=== PATIENT | male | born 1995 | race Caucasian/White ===

== ENCOUNTER 2018-08-22 09:12 | Emergency (ER) | payer BC, OTHER ==
--- NOTE | 2018-08-22 10:30 | RAD REPORT ---
EXAM DESCRIPTION: CT - Stone Protocol - 08/22/2018 10:15 am CLINICAL HISTORY: Flank pain. Abd pain;Flank pain COMPARISON: No comparisons TECHNIQUE: Axial images were obtained without oral or IV contrast. Lack of contrast limits solid org an and vascular assessment. The [id number] spans the entirety of the system partially obscuring uppermost abdomen and lung bases. Coronal reformatted images were obtained and reviewed. All CT scans are performed using dose optimization technique as appropriate and may include automated exposure control or mA/KV adjustment according to patient size. FINDINGS: The lower lung ceballos are clear. Imaged portions of the liver and spleen show no suspicious findings on non-contrast imaging. The panc reas and adrenal glands are normal. No pathologic lymphadenopathy in the abdomen or pelvis. No urinary tract stones or obstructive uropathy. No bowel obstruction, free air, free fluid or abscess. Normal appendix noted. No significant bony abnormality. IMPRESSION: No urinary tract stones or obstructive uropathy.
[2018-08-22 10:37] LABS: Absolute Lymphocytes (CBC) 1.8 K/uL (0.7-4.9); Absolute Monocytes 0.5 K/uL (0.1-1.3); Absolute Neutrophil 4.9 K/uL (1.8-8.0); Basophils % 0.3 % (0-1.3); Eosinophils % 1.1 % (0-4.4); Hematocrit 44.2 % (39.6-49.0); Lymphocytes % 24.5 % (15.3-44.8); MPV 7.4 fL (7.6-11.3); Monocytes % 7.1 % (3.3-12.3); RBC Red Blood Cell Count 5.16 M/uL (4.33-5.43)
[2018-08-22] MEDS ORDERED: KETOROLAC 30 MG/ML INJ ONE (10:47)
[2018-08-22] MEDS ORDERED: NA CHLORIDE 0.9% 1,000 ML ONE (10:47)
--- NOTE | 2018-08-22 10:52 | ER ---
Nurse's Notes [facility] Name: John Vanegas Age: 23 yrs Sex: Male : 1995 Arrival Date: 08/22/2018 Time: 09:16 Bed 18 Private MD: Diagnosis: Hematuria;Cystitis Presentation: 08/22 09:46 Presenting complaint: Patient states: had flu like symptoms 3 days ago, was running iw fever, symptoms resolved, no has pain and blood in urine since yesterday, also c/o right flank pain and neck pain, denies fever, denies hx of kidney stones. Transition of care: patient was not received from another setting of care. Onset of symptoms was August 22, 2018. Risk Assessment: Do you want to hurt yourself or someone else? Patient reports no desire to harm self or others. Initial Sepsis Screen: Does the patient meet any 2 criteria? No. Patient's initial sepsis screen is negative. Does the patient have a suspected source of infection? No. Patient's initial sepsis screen is negative. Care prior to arrival: None. 09:46 Method Of Arrival: Ambulatory iw 09:46 Acuity: LESLY 3 iw Historical: - Allergies: 09:49 NKA; iw - Home Meds: 09:49 None [Active]; iw - PMHx: 09:49 None; iw - PSHx: 09:49 None; iw - Immunization history:: Adult Immunizations not up to date. - Social history:: Smoking status: Patient/guardian denies using tobacco. - Ebola Screening: : Patient negative for fever greater than or equal to 101.5 degrees Fahrenheit, and additional compatible Ebola Virus Disease symptoms Patient denies exposure to infectious person Patient denies travel to an Ebola-affected area in the 21 days before illness onset No symptoms or risks identified at this time. - Family history:: not pertinent. Screenin:30 Abuse screen: Denies threats or abuse. Denies injuries from another. Nutritional ss screening: No deficits noted. Tuberculosis screening: Never had TB. Fall Risk None identified. Assessment: 09:45 General: Appears in no apparent distress. comfortable, Behavior is calm, cooperative, ss Denies fever, feeling ill, fatigue, chills. Pain: Complains of pain in right lower quadrant and right upper quadrant. Neuro: Level of Consciousness is awake, alert, obeys commands, Oriented to person, place, time, situation. Cardiovascular: Capillary refill < 3 seconds is brisk in bilateral fingers. Respiratory: Airway is patent Respiratory effort is even, unlabored, Respiratory pattern is regular, symmetrical. GI: Patient currently denies diarrhea, nausea, vomiting. : Reports blood in urine that began this morning. EENT: Nares are clear Oral mucosa is moist. Derm: Skin is intact, is healthy with good turgor, Skin is dry, Skin is pink, warm \T\ dry. normal. 10:30 Reassessment: Patient appears in no apparent distress at this time. Patient and/or ss family updated on plan of care and expected duration. Pain level reassessed. Patient is alert, oriented x 3, equal unlabored respirations, skin warm/dry/pink. Vital Signs: 09:48 BP 153 / 91; Pulse 84; Resp 16; Temp 98.4(O); Pulse Ox 99% ; Weight 115.67 kg; Height 5 iw ft. 9 in. (175.26 cm); Pain 4/10; 11:51 BP 148 / 97; Pulse 87; Resp 16; Pulse Ox 100% on R/A; Pain 0/10; ss 09:48 Body Mass Index 37.66 (115.67 kg, 175.26 cm) iw ED Course: 09:16 Patient arrived in ED. as 09:31 Leonardo Banuelos MD is Attending Physician. [facility] 09:48 Triage completed. iw 09:48 Arm band placed on. iw 10:14 CT Stone Protocol In Process Unspecified. EDMS 10:17 Urine Dipstick--Ancillary (enter results) Sent. mh5 10:17 Urine Culture Sent. mh5 10:27 Patient has correct armband on for positive identification. Placed in gown. Bed in low mh5 position. Call light in reach. Pulse ox on. NIBP on. 10:27 Urine collected: clean catch specimen, cloudy. mh5 10:40 Sheridan Jaffe, RDIGE is Primary Nurse. ss 11:47 No provider procedures requiring assistance completed. IV discontinued, intact, ss bleeding controlled, No redness/swelling at site. Pressure dressing applied. Administered Medications: 10:40 Drug: TORadol 30 mg Route: IVP; Site: right antecubital; ss 11:24 Follow up: Response: No adverse reaction; Pain is decreased ss 10:41 Drug: NS 0.9% 1000 ml Route: IV; Rate: 1 bolus; Site: right antecubital; ss 11:51 Follow up: IV Status: Completed infusion ss 10:59 Not Given (per pharmacy policy): Rocephin - (cefTRIAXone) 1 grams IVPB once over 30 ss mins; (mix in 50 mL NS) 11:24 Drug: Zithromax 1 grams Route: PO; ss 11:25 Follow up: Response: No adverse reaction; Medication administered at discharge. ss 11:25 Drug: Rocephin 1 grams Route: IV; Rate: calculated rate; Site: right antecubital; ss 11:25 Follow up: IV Status: Completed infusion; infusion completed over 2 minutes ss Intake: Outcome: 10:51 Discharge ordered by . lizett 11:47 Discharged to home ambulatory. ss 11:47 Condition: good 11:47 Discharge instructions given to patient, Instructed on discharge instructions, follow up and referral plans. medication usage, Demonstrated understanding of instructions, follow-up care, medications, Prescriptions given X 1. 12:07 Patient left the ED. ss Signatures: Dispatcher [employer] Leonardo Trimble MD MD cha Martinez, Amelia as Williams, Irene, RN RN iw Smirch, Shelby, RN RN ss Martinez, Maria mh5
--- NOTE | 2018-08-22 10:52 | EDPHYS ---
Physician Documentation [facility] Name: John Vanegas Age: 23 yrs Sex: Male : 1995 Arrival Date: 08/22/2018 Time: 09:16 Bed 18 Private MD: ED Physician Leonardo Banuelos HPI: 08/22 10:04 This 23 yrs old Male presents to ER via Ambulatory with complaints of Flank lizett Pain, Neck Pain, >24Hrs Old, Urinary Problem. 10:04 The patient complains of pain in the right mid back and right low back. The pain lizett radiates to the right mid back and right low back. Onset: The symptoms/episode began/occurred 3 day(s) ago. Modifying factors: The symptoms are alleviated by nothing. the symptoms are aggravated by nothing. Associated signs and symptoms: The patient has no apparent associated signs or symptoms. Severity of pain: At its worst the pain was mild in the emergency department the pain is unchanged. The patient has not experienced similar symptoms in the past. Historical: - Allergies: 09:49 NKA; iw - Home Meds: 09:49 None [Active]; iw - PMHx: 09:49 None; iw - PSHx: 09:49 None; iw - Immunization history:: Adult Immunizations not up to date. - Social history:: Smoking status: Patient/guardian denies using tobacco. - Ebola Screening: : Patient negative for fever greater than or equal to 101.5 degrees Fahrenheit, and additional compatible Ebola Virus Disease symptoms Patient denies exposure to infectious person Patient denies travel to an Ebola-affected area in the 21 days before illness onset No symptoms or risks identified at this time. - Family history:: not pertinent. ROS: 10:04 Constitutional: Negative for fever, chills, and weight loss, Eyes: Negative for injury, lizett pain, redness, and discharge, ENT: Negative for injury, pain, and discharge, Neck: Negative for injury, pain, and swelling, Cardiovascular: Negative for chest pain, palpitations, and edema, Respiratory: Negative for shortness of breath, cough, wheezing, and pleuritic chest pain, : Negative for injury, bleeding, discharge, and swelling, MS/Extremity: Negative for injury and deformity, Skin: Negative for injury, rash, and discoloration, Neuro: Negative for headache, weakness, numbness, tingling, and seizure, Psych: Negative for depression, anxiety, suicide ideation, homicidal ideation, and hallucinations, Allergy/Immunology: Negative for hives, rash, and allergies, Endocrine: Negative for neck swelling, polydipsia, polyuria, polyphagia, and marked weight changes, Hematologic/Lymphatic: Negative for swollen nodes, abnormal bleeding, and unusual bruising. 10:04 Abdomen/GI: Positive for abdominal pain, of the anterior aspect of right lateral abdomen, posterior aspect of right lateral abdomen, right upper quadrant and right lower quadrant. 10:04 Back: Positive for pain at rest, flank pain, on the right. Exam: 10:06 Constitutional: This is a well developed, well nourished patient who is awake, alert, lizett and in no acute distress. Head/Face: Normocephalic, atraumatic. Eyes: Pupils equal round and reactive to light, extra-ocular motions intact. Lids and lashes normal. Conjunctiva and sclera are non-icteric and not injected. Cornea within normal limits. Periorbital areas with no swelling, redness, or edema. ENT: Nares patent. No nasal discharge, no septal abnormalities noted. Tympanic membranes are normal and external auditory canals are clear. Oropharynx with no redness, swelling, or masses, exudates, or evidence of obstruction, uvula midline. Mucous membranes moist. Neck: Trachea midline, no thyromegaly or masses palpated, and no cervical lymphadenopathy. Supple, full range of motion without nuchal rigidity, or vertebral point tenderness. No Meningismus. Chest/axilla: Normal chest wall appearance and motion. Nontender with no deformity. No lesions are appreciated. Cardiovascular: Regular rate and rhythm with a normal S1 and S2. No gallops, murmurs, or rubs. Normal PMI, no JVD. No pulse deficits. Respiratory: Lungs have equal breath sounds bilaterally, clear to auscultation and percussion. No rales, rhonchi or wheezes noted. No increased work of breathing, no retractions or nasal flaring. Back: No spinal tenderness. No costovertebral tenderness. Full range of motion. Male : Normal genitalia with no discharge or lesions. Skin: Warm, dry with normal turgor. Normal color with no rashes, no lesions, and no evidence of cellulitis. MS/ Extremity: Pulses equal, no cyanosis. Neurovascular intact. Full, normal range of motion. Neuro: Awake and alert, GCS 15, oriented to person, place, time, and situation. Cranial nerves II-XII grossly intact. Motor strength 5/5 in all extremities. Sensory grossly intact. Cerebellar exam normal. Normal gait. Psych: Awake, alert, with orientation to person, place and time. Behavior, mood, and affect are within normal limits. 10:06 Abdomen/GI: Inspection: abdomen appears normal, Bowel sounds: normal, Palpation: abdomen is soft and non-tender, Liver: no appreciated palpable abnormalities, Hernia: not appreciated. Vital Signs: 09:48 BP 153 / 91; Pulse 84; Resp 16; Temp 98.4(O); Pulse Ox 99% ; Weight 115.67 kg; Height 5 iw ft. 9 in. (175.26 cm); Pain 4/10; 11:51 BP 148 / 97; Pulse 87; Resp 16; Pulse Ox 100% on R/A; Pain 0/10; ss 09:48 Body Mass Index 37.66 (115.67 kg, 175.26 cm) iw MDM: 09:42 Patient medically screened. [facility] 10:06 Data reviewed: vital signs, nurses notes, lab test result(s), radiologic studies, CT lizett scan. 08/22 10:04 Order name: Basic Metabolic Panel; Complete Time: 11:05 [facility] 08/22 10:04 Order name: CBC with Diff; Complete Time: 10:49 [facility] 08/22 10:04 Order name: Creatinine for Radiology; Complete Time: 11:05 [facility] 08/22 10:04 Order name: Hepatic Function; Complete Time: 11: [facility] 08/22 10:04 Order name: Lipase; Complete Time: 11:05 [facility] 08/22 10:04 Order name: Urine Culture [facility] 08/22 10:04 Order name: IV Saline Lock; Complete Time: 10:33 [facility] 08/22 10:04 Order name: CT Stone Protocol; Complete Time: 10:49 [facility] 08/22 10:09 Order name: Urine Dipstick--Ancillary (enter results) 08/22 10:04 Order name: Labs collected and sent; Complete Time: 10:33 [facility] 08/22 10:04 Order name: Urine Dipstick-Ancillary (obtain specimen); Complete Time: 10:17 [facility] Administered Medications: 10:40 Drug: TORadol 30 mg Route: IVP; Site: right antecubital; ss 11:24 Follow up: Response: No adverse reaction; Pain is decreased ss 10:41 Drug: NS 0.9% 1000 ml Route: IV; Rate: 1 bolus; Site: right antecubital; ss 11:51 Follow up: IV Status: Completed infusion ss 10:59 Not Given (per pharmacy policy): Rocephin - (cefTRIAXone) 1 grams IVPB once over 30 ss mins; (mix in 50 mL NS) 11:24 Drug: Zithromax 1 grams Route: PO; ss 11:25 Follow up: Response: No adverse reaction; Medication administered at discharge. ss 11:25 Drug: Rocephin 1 grams Route: IV; Rate: calculated rate; Site: right antecubital; ss 11:25 Follow up: IV Status: Completed infusion; infusion completed over 2 minutes ss Disposition: 08/22/18 10:51 Discharged to Home. Impression: Hematuria, Cystitis. - Condition is Stable. - Discharge Instructions: Dysuria, Hematuria, Adult, Urinary Tract Infection, Adult. - Prescriptions for Cipro 500 mg Oral Tablet - take 1 tablet by ORAL route every 12 hours for 7 days; 14 tablet. - Medication Reconciliation Form, Thank You Letter, Antibiotic Education, Prescription Opioid Use form. - Follow up: Private Physician; When: 2 - 3 days; Reason: Recheck today's complaints, Continuance of care, Re-evaluation by your physician. - Problem is new. - Symptoms have improved. Signatures: Dispatcher [employer] EDSC Leonardo Banuelos MD MD cha Williams, Irene, RN RN Sheridan Jaffe RN RN ss Corrections: (The following items were deleted from the chart) 12:07 10:51 08/22/2018 10:51 Discharged to Home. Impression: Hematuria; Cystitis. Condition ss is Stable. Forms are Medication Reconciliation Form, Thank You Letter, Antibiotic Education, Prescription Opioid Use. Follow up: Private Physician; When: 2 - 3 days; Reason: Recheck today's complaints, Continuance of care, Re-evaluation by your physician. Problem is new. Symptoms have improved. lizett
[2018-08-22 10:55] LABS: Albumin 3.8 g/dL (3.4-5.0); Bilirubin Direct 0.1 mg/dL (0-0.2); Bilirubin Total 0.4 mg/dL (0.2-1.0); Potassium 4.3 mmol/L (3.5-5.1); Protein, Total 8.2 g/dL (6.4-8.2)
[2018-08-22] MEDS ORDERED: AZITHROMYCIN 250 MG TAB ONE (11:15)
[2018-08-22] MEDS ORDERED: CEFTRIAXONE/SWI 1gm 1 GM/10 ML SYR ONE (11:15)
[2018-08-22 14:15] LABS: Urine Blood 3+ (NEG); Urine Glucose NEGATIVE (NEG); Urine Protein 2+ (NEG); Urine Specific Gravity 1.025 (1.005-1.030)
== END 2018-08-22 12:07 | disposition home or self-care (01) ==
LOC: ER 09:12
DX: N30.91 Cystitis, unspecified with hematuria (principal)
CPT/HCPCS: 36415; 74176; 76377; 80048; 80076; 81003; 83690; 85025; 87077; 87086; 87088; 87186; 96361; 96374; 96375; 99284; J0696; J7030